=== PATIENT | female | born 1995 ===

== ENCOUNTER 2025-02-04 18:05 | Inpatient (IN) | payer OTHER ==
[~2025-02-04] VITALS: Ht 175.3 cm; Wt 59.0 kg
[2025-02-05] MEDS ORDERED: HydrOXYzine Pamoate 50 MG Cap PO PRN (15:30)
[2025-02-05] MEDS ORDERED: Polyethylene Glycol 3350 17 gm PO PRN (15:35)
[2025-02-05] MEDS ORDERED: OLANZapine ODT 10 MG Tab MM PRN (15:35)
[2025-02-05] MEDS ORDERED: LORazepam 2 MG Tab PO PRN (15:35)
[2025-02-05] MEDS ORDERED: Haloperidol Lactate Inj. 5 MG/ML Injection IM PRN (15:35)
[2025-02-05] MEDS ORDERED: Haloperidol 5 MG Tab PO PRN (15:35)
[2025-02-05] MEDS ORDERED: TraZODone HCl 50 MG Tab PO PRN (15:40)
[2025-02-05] MEDS ORDERED: Ibuprofen 600 MG Tab PO PRN (15:40)
[2025-02-05] MEDS ORDERED: Melatonin 3 MG Tab PO PRN (15:40)
[2025-02-05] MEDS ORDERED: Acetaminophen 325 MG TABLET PO PRN (15:40)
[2025-02-05] MEDS ORDERED: LORazepam 2 MG/ML 1ML Injection IM PRN (15:40)
[2025-02-05] MEDS ORDERED: Aluminum Hydroxide 320MG/5ML 473 ML PO PRN (15:40)
[2025-02-05] MEDS ORDERED: Calcium Carbonate 500 MG Tab Chew PO PRN (15:40)
[2025-02-05] MEDS ORDERED: DiphenhydrAMINE HCl 50 MG Cap PO PRN (15:45)
[2025-02-05] MEDS ORDERED: DiphenhydrAMINE HCl 50 MG/ML 1ML Vial IV PRN (15:45)
[2025-02-05] MEDS ORDERED: FLU VACC TS2024-25(6MOS UP)/PF 45 MCG/0.5 ML SYRINGE IM SCH (15:45)
[2025-02-05] MEDS ORDERED: Ondansetron 4 MG SoluTab MM PRN (16:10)
[2025-02-05 16:41] VITALS: BP 133/117
[2025-02-05] MEDS ORDERED: Cephalexin Monohydrate 500 MG Cap PO SCH (17:00)
--- NOTE | 2025-02-05 17:32 | NUR ---
ADMIT NOTE: PT ADMITED AT 1410. PT A/O X4. 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 PT IS A POOR HISTORIAN OF TIME PERIODS. PT WAS FOUND UNCONSICOUS IN AN HALF-WAY IN [place], OR. FROM WHICH SHE HAD OVER DOSED ON A PIPE WITH FENTANYL. PT REPORTS THAT SHE HAS DEPRESSION AND PTSD. PT STATES IS SI AND AH. VOICES THAT WHISPER THINGS ABOUT HER LIFE AND SHE CAN'T ALLOW OTHERS TO KNOW. HAD A PLAN TO JUMP OFF OF THE " [address] WAY BRIDGE" FROM [place]. PER RN REPORT FROM [place] PT SAYS THAT SHE " CANNOT EAT MEAT BECAUSE SHE ATE A PERSON ALREADY" PT IS CURRENTLY ON KEFLEX 500 MG PO Q 6 HOURS FOR A UTI. 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 PT HAS IN HER POSITION A METAL [facility] DOG TAG AND A METAL SMALL VILE THAT CONTAIN " [place]" (3) PRESENT. GIVEN PERMISSION TO KEEP AT SIDE WITH KNOWING THE RISK OF LOOSNG THEM ON THE UNIT. PT VERY ADIMENT IN KEEPING THEM WITH HER. RESIDENTIAL DIRECTOR NOTIFIED AND WAS GIVEN PERMISSION TO KEEP THEM, BUT NECK CHAIN ON WHICH THEY WERE ON WAS PUT IN CONTAINER AND INVENTORIED. PT STATES SHE WAS IN THE [facility] FROM 2016 UNTIL 2023. THEN STATED THAT SHE GOT OUT OF LONG TERM IN OCTOBER 2024. TIME HISTORY IS NOT IN ORDER OF EVENTS. PT WALKS WITH A LIMP TO THE RIGHT KNEE/LEG FROM A " SPINE BONE TAKEN OUT AND PUT INTO MY KNEE, SO IT IS "PROSTHETIC" PER PT. " THERE IS NO SCARS PRESENT ON HER BACK OR LEGS. PT SHOWERED AFTER ADMISSION AND ATE DINNER. PT IS HOMELESS AT THIS TIME. WILL CONTINUE TO MONITOR FOR WELLNESS AND SAFETY. GIVEN FROM
--- NOTE | 2025-02-05 18:33 | NUR ---
ON ADMISSION IN [facility]ONGINGS, A SMALL GLASS SMOKING DEVICE WITH CONTENT WAS FOUND AND SECURITY CAME TO COLLECT IT PER PROTOCALL.
--- NOTE | 2025-02-05 21:02 | NUR ---
Patients clothes have been washed and dried, placed into patient bags, put in their bin and the bin has been put in storage room.
--- NOTE | 2025-02-06 04:25 | NUR ---
SHIFT SUMMARY, NOC PT WAS IN BED AT THE START OF SHIFT. SHE WOKE FOR EVENING SNACK AND PARTICIPATED. PT THEN APPROACHED DESK AND ASKED FOR HER EVENING MEDICATIONS, WAS BUSY WITH AN OTHER PT. TOLD HER I'D CHECK IN WITH HER SHORTLY ONLY TO FIND SHE HAD NOTHER ORDERED FOR BEDTIME BUT DID HAVE MELATONIN PRN AND SHE REQUESTED THAT. SHE ADMITTED TO THE UNIT YESTERDAY ON DAY SHIFT. SHE ARRIVED WITH A UTI, MEDICATED AROUND MIDNIGHT WITH HER ABX, SHE ROLLED RIGHT OVER AND SLEPT. CONTINUED Q15 MIN CHECKS THROUGH THE SHIFT TO ENSURE PATIENTS SAFETY
[2025-02-06 08:40] VITALS: BP 118/80
[2025-02-06] MEDS ORDERED: Multivitamins 1 Tab PO SCH (09:00)
[2025-02-06] MEDS ORDERED: Nicotine Polacrilex 2 MG Gum PO PRN (11:35)
--- NOTE | 2025-02-06 12:40 | NUR ---
EXPLAINED TO PT THE IMPORTANCE OF SAFETY ON THE UNIT FOR HERSELF AND OTHERS. PT THEN GAVE [facility] TAG AND METAL VIAL WITH ROCKS PRESENT TO STAFF AND THEN WAS PUT INTO SAFE FOR STORAGE OF SAFE KEEPING.
--- NOTE | 2025-02-06 12:44 | NUR ---
PT A/O X3. HAS TO BE REMINDED OF LOCATION OF PLACE, [facility] LOCATION. PT HAS SCATTERED THOUGHTS AND TANGENTIAL. UNABLE TO KEEP ENGAGED AND ON 1 SUBJECT. HER MIND WANDERS. BRINGS UP DELUSIONAL THOUGHTS OF PAST AND STATES THAT SHE COULD GET HI IF WAS "PUSHED", ASKED WHAT SHE MEANT. REPLIED, " I HAVE KILLED FOR MY FAMILY AND WOULD DO IT AGAIN." ENCOURAGED IF SHE SHOULD GET THESE FEELINGS TO LET STAFF KNOW SO SHE CAN BE GIVEN SOME SUPPORT AND HELP. PT STATES THAT SHE IS SI TODAY. PLAN WOULD BE TO JUMP OFF A BRIDGE. PT DOES NOT LIMP IN GAIT TODAY. PARTICIPATES IN GROUP WITH OTHERS AND INTERACTS APPROPRIATELY. PT THIS MORNING HAD A DIFFERENT INTERVIEW OF INTERACTION. SEEMS TO BE ON/OFF IN ANGER VS DELUSIONAL. WILL CONTINUE TO MONITOR FOR SAFETY AND WELLNESS.
[2025-02-06 20:11] VITALS: BP 115/65
[2025-02-06] MEDS ORDERED: OLANZapine ODT 5 MG Tab MM SCH (21:00)
--- NOTE | 2025-02-07 04:32 | NUR ---
SHIFT SUMMARY, NOC AT START OF SHIFT PT WAS IN HER ROOM, SHE GOT UP FOR SNACK TIME AT 1999, SHE WAS TALKING UNDER HER BREATH, WHEN ASKED, SHE ENDORSED AUDIO HALLUCINATIONS AND CONTINUED TO RAMBLE NOT MAKING SENSE. SHE GESTURED TO HER R SIDE AT THE PANT WAIST LINE, PULLED UP THE SIDE OF SHIRT. RASHY AREA NOTICED. IN THE PRIVACY OF HER ROOM, SHE PULLED UP THE BACK OF SHIRT TO REVEAL THAT ALL OF HER BACK FROM THE BRA LINE DOWN WAS COVERED IN SOLID RED RASH, ENDORSING URTICARIA WITH IT. SHE STATED THE RASH WENT TO BILAT BUTTOCKS AND POSTERIOR UPPER THIGHS. INFORMED HER WE WOULD NOTIFY THE PROVIDER. SHE WENT TO BED AND HAS NOT BEEN OUT OF BED SINCE THAT TIME. IN RESPONSE DR FORD HAD US PUT IN A HOSPITALIST CONSULT WHICH WAS COMPLETED.
[2025-02-07] MEDS ORDERED: DiphenhydrAMINE HCl 50 MG Cap PO PRN (07:40)
[2025-02-07 08:18] VITALS: BP 133/103
[2025-02-07 08:20] VITALS: BP 103/65
[2025-02-07] MEDS ORDERED: DiphenhydrAMINE HCL 25 MG Cap PO PRN (15:55)
[2025-02-07] MEDS ORDERED: Loratadine 10 MG Tab PO SCH (15:58)
[2025-02-07] MEDS ORDERED: Loratadine 5 MG/5 ML 5MLUDC PO SCH (16:00)
[2025-02-07 16:58] LABS: Source, Urine Clean Catch
--- NOTE | 2025-02-07 17:08 | NUR ---
SHIFT SUMMARY PT AxOx4. PLEASANT AND COOPERATIVE WITH CARE. PT DENIED SI/HI AND AVTH THIS AM, BUT DID ENDORSE HEARING VOICES LATER IN THE AFTERNOON. PT'S BEHAVIOR HAS BEEN CALM AND RELAXED TODAY. SHE HAD A HOSPITALIST CONSULT TODAY FOR A RED, ITCHY RASH ON HER BACK. PT'S MEDICATIONS WERE ADJUSTED INCLUDING DC'ING ORAL ANTIBIOTICS. PATIENT REPORTED SYMPTOM RELIEF AFTER MEDICATION ADMINISTRATION. PT UA WAS ALSO COLLECTED AND SENT TO LAB. PT HAS BEEN FOLLOWING TREATMENT PLAN INCLUDING TAKING MEDICATIONS PRESCRIBED, ATTENDING MILIEU GROUPS AND MINGLING APPROPRIATELY WITH STAFF/PEERS ON THE UNIT. PT IS CURRENTLY EATING DINNER IN DINING ROOM WITH PEERS. DENIES ANY NEEDS AT THIS TIME.
[2025-02-07 17:14] LABS: Appearance, Urine Hazy (Clear); Bilirubin, Urine Neg (Neg); Blood, Urine Neg (Neg); Color, Urine Yellow (P-Yellow); Glucose Qualitative, Urine Neg (Neg); Ketones, Urine Neg (Neg); Leukocyte Esterase, Urine Neg (Neg); Nitrite, Urine Neg (Neg); Protein, Urine Neg (Neg); Urobilinogen, Urine NORM (Normal)
[2025-02-07 17:31] LABS: Amorphous Light (0-Heavy); Bacteria Mod /hpf; Red Blood Cells, Urine Not Seen /hpf (0-2); Squamous Epithelial Cells Rare /hpf (Few); White Blood Cells, Urine 0-2 /hpf (0-5)
[2025-02-07] MEDS ORDERED: Triamcinolone Acet 0.5% Cream 15 gm TOP SCH (20:00)
[2025-02-07 20:37] VITALS: BP 104/75
[2025-02-07 20:38] VITALS: BP 122/90
[2025-02-07] MEDS ORDERED: Cephalexin Monohydrate 500 MG Cap PO SCH (21:00)
--- NOTE | 2025-02-08 04:33 | NUR ---
SHIFT SUMMARY: PATIENT WAS IN HER ROOM AT THE BEGINNING OF THE SHIFT, LYING ON HER BED AWAKE. SHE GOT UP FOR SNACK TIME AT 1999. SHE WAS PLEASANT AND COOPERATIVE WITH CARES. SHE STATED THAT SHE WASN'T SURE HOW HER DAY WAS, BUT "IT WAS BETTER THAN YESTERDAY". SHE WAS COMPLIANT WITH EVENING MEDICATIONS AND ASKED PERTINENT QUESTIONS. SHE WENT TO BED AFTER SNACK TIME, AND WAS NOTED TO BE RESTING QUIETLY WITH EYES CLOSED AND RESPIRATIONS CONFIRMED. SHE DENIED THOUGHTS OF SI/HI OR SELF HARM THIS SHIFT. CONTINUING TO MONITOR FOR SAFETY WITH Q15 MINUTE CHECKS.
[2025-02-08 08:02] VITALS: BP 117/74
[2025-02-08] MEDS ORDERED: Loratadine 10 MG Tab PO SCH (09:00)
--- NOTE | 2025-02-08 18:13 | NUR ---
SHIFT NOTE PT COOPERATIVE AND CALM THIS SHIFT. SHE WAS ALERT AND ORIENTED X3 AND ANSWERED ALL QUESTIONS. SHE STATE SHE LAST WAS AT [facility] AND HER LAST PHARMACY USED WAS [facility] IN [place]. PT STATE SHE HEARS VOICES THAT ARE TELLING HER TO HARM HERSELF BUT SHE IS ABLE TO NOT LISTEN TO THEM AND DOES NOT WANT TO SELF HARM. THEY ARE ALSO DESCRIBING HER PAST INCIDENTS TO HER. PT DENIES ANY VTH OR SI. SHE DOES HAVE A RASH FROM MID BACK DOWN TO BILATERAL THIGHS THAT IS ITCHY, RED, AND SWOOLEN. SHE SEEN BY HOSPITALIST ABOUT THIS ALREADY. SHE HAS BEEN TO GROUPS AND HAS BEEN COOPERATIVE WITH MEDICATIONS THIS SHIFT.
[2025-02-08 20:49] VITALS: BP 123/79
[2025-02-08] MEDS ORDERED: OLANZapine ODT 10 MG Tab MM SCH (21:00)
--- NOTE | 2025-02-09 04:06 | NUR ---
SHIFT SUMMARY: PATIENT WAS IN THE MILIEU WITH PEERS AND STAFF AT THE BEGINNING OF THE SHIFT. SHE IS SOFT-SPOKEN BUT GETS ALONG WELL WITH OTHERS. SHE IS KIND AND PLEASANT TO HER PEERS. SHE PARTICIPATED IN SNACK AND FOLLOW UP GROUP AT 1999. SHE WAS COMPLIANT WITH EVENING MEDICATIONS. SHE WAS UP X1 DURING COMMUNICATIONS STATION MANAGER FOR A VISTARIL DUE TO CONTINUED INSOMNIA, WHICH WAS EFFECTIVE. SHE REMAINED UP FOR A SHORT TIME AFTER SNACK, AND THEN WENT TO HER ROOM WHERE SHE WAS NOTED TO BE IN BED RESTING WITH EYES CLOSED AND RESPIRATIONS CONFIRMED. SHE DENIED THOUGHTS OF SI OR SELF HARM THIS SHIFT. CONTINUING TO MONITOR FOR SAFETY WITH Q15 MINUTE CHECKS.
[2025-02-09] MEDS ORDERED: Nicotine 21 MG PATCH TOP SCH (09:00)
[2025-02-09] MEDS ORDERED: HydrOXYzine Pamoate 50 MG Cap PO PRN (10:05)
--- NOTE | 2025-02-09 18:18 | NUR ---
SHIFT NOTE PT DENIES ANY SI/HI/VTH, SHE SAYS SHE HEARS VOICES THAT ARE TELLING HER TO HURT HERSELF BY "SHOOTING UP" BUT SHE IS NOT GOING TO LISTEN TO THEM. SHE HAS PARTICIPATED IN GROUPS AND MEALS. SHE C/O INCREASING ANXIETY AND WAS MEDICATED WITH VISTARIL. LATER IN THE DAY SHE C/O CONTINUED ANXIETY AT 8/10 AND WAS THEN MEDICATED WITH ZYPREXA. SHE HAS BEEN COMPLIAT WITH ALL MEDICATIONS AND CALM THIS SHE. SHE HAS DENIED ANY ITCHING ON THIS SHIFT AND THE RASH SEEN YESTERDAY APPEARS TO BE RESOLVING.
[2025-02-09] MEDS ORDERED: Loratadine 10 MG Tab PO PRN (19:13)
--- NOTE | 2025-02-10 00:07 | NUR ---
MASS SCORE: PATIENT GIVEN ZYPREXA FOR ANXIETY AND AGITATION SECONDARY TO "NIGHT TERRORS". PATIENT WOULD BE INTERESTED IN TRYING PRAZOCIN.
--- NOTE | 2025-02-10 04:23 | NUR ---
SHIFT SUMMARY: PATIENT WAS UP IN THE MILIEU AT THE BEGINNING OF THE SHIFT, INTERACTING WITH PEERS AND STAFF. SHE PARTICIPATED IN SNACK AND FOLLOW UP GROUP AT 1999. SHE STATED THAT SHE FEELS "MORE ARTISTIC" AND IS HAPPY ABOUT THAT. SHE WAS PLEASANT AND COOPERATIVE WITH CARES. SHE SHOWED KINDNESS TO A PEER WHO WAS NEW TO THE UNIT. SHE WAS COMPLIANT WITH EVENING MEDICATION ADMINISTRATION. SHE WENT TO BED AFTER SNACK TIME AND WAS NOTED TO BE RESTING QUIETLY WITH EYES CLOSED AND RESPIRATIONS CONFIRMED FOR THE REMAINDER OF THE SHIFT. SHE DENIED THOUGHTS OF SI OR SELF HARMING THIS SHIFT. CONTINUING TO MONITOR FOR SAFETY WITH Q15 MINUTE CHECKS.
[2025-02-10 08:12] VITALS: BP 114/76
[2025-02-10] MEDS ORDERED: HydrOXYzine Pamoate 50 MG Cap PO SCH (14:00)
[2025-02-10] MEDS ORDERED: OLANZapine ODT 5 MG Tab PO ONE (17:35)
--- NOTE | 2025-02-10 17:54 | NUR ---
SHIFT SUMMARY: PT ALERT, ORIENTED AND COOPERATIVE WITH CARE. HAS BEEN PRESENT ON THE UNIT AND ATTENDED GROUPS. PT C/O INCREASED ANXIETY IN THE EVENING. CALL PLACED TO PROVIDER AND NEW ORDER OBTAINED FOR ON TIME DOSE OF ZYPREXA 5 MG. PT MEDICATED PER ORDERS. HAS BEEN PRESENT FOR MEALS. SPENT TIME IN THE DAY ROOM WATCHING TV AND TALKING WITH BOARD ATTENDANT VAZQUEZ.
[2025-02-10 19:59] VITALS: BP 110/73
--- NOTE | 2025-02-11 05:07 | NUR ---
SHIFT SUMMARY: RN RECEIVED PATIENT FOR CARE AT 0030. PATIENT WAS UP X1 STATING THAT SHE NEEDED HELP SLEEPING. SHE WAS GIVEN ZYPREXA WITH GOOD EFFECT. SHE WORKED WITH RN TO DEFINE WAYS OF COPING THAT MIGHT HELP WITH INSOMNIA, SUCH UTILIZING HER COPING SKILLS OF ART, WHICH SHE STATES IS MOST HELPFUL FOR HER. SHE DENIED FEELINGS OF SI OR SELF HARMING. SHE SPENT MOST OF THE SHIFT IN BED RESTING WITH EYES CLOSED AND RESPIRATIONS CONFIRMED. CONTINUING TO MONITOR FOR SAFETY WITH Q15 MINUTE CHECKS.
[2025-02-11 08:15] VITALS: BP 117/81
[2025-02-11] MEDS ORDERED: HydrOXYzine Pamoate 50 MG Cap PO SCH (14:00)
[2025-02-11] MEDS ORDERED: OLANZapine 5 MG Tab PO SCH ×2 (14:00)
--- NOTE | 2025-02-11 17:44 | NUR ---
PT ALERT, ORIENTED AND COOPERATIVE WITH CARE. COMPLIANT WITH MEDICATIONS. PT ENGAGED IN MILIEU AND SPENT TIME IN THE DAY ROOM. PT VERBALIZED FRUSTRATION R/T NOT BEING ABLE TO PICK A MUSICAL TO WATCH IN THE DAY ROOM. WAS FOUND BY MHA SITTING IN THE FLOOR UPSET. PT WAS AGREEABLE TO COLORING IN THE SENSORY ROOM.
[2025-02-11 20:18] VITALS: BP 118/75
[2025-02-11] MEDS ORDERED: OLANZapine ODT 10 MG Tab MM SCH (21:00)
--- NOTE | 2025-02-12 04:14 | NUR ---
SHIFT SUMMARY: PATIENT WAS IN THE DAY ROOM AT THE BEGINNING OF THE SHIFT, WATCHING TELEVISION WITH STAFF AND PEERS. SHE WAS PLEASANT AND COOPERATIVE. SHE PARTICIPATED IN SNACK AND EVENING GROUP IN THE DINING AREA AT 1999. SHE WAS COMPLIANT WITH EVENING MEDICATION ADMINISTRATION. SHE DENIED SUICIDAL IDEATION OR THOUGHTS OF SELF HARMING THIS SHIFT. SHE GOT UP X1 DURING DOCTOR'S ASSISTANT, REQUESTING SOMETHING FOR SLEEP AND SOMETHING FOR ITCHING. SHE RECEIVED CLARITIN BUT HAD NOTHING FOR ANXIETY/SLEEP. SHE WAS ABLE TO GO BACK TO BED AND REST. SHE WAS MOSTLY RESTING QUIETLY WITH EYES CLOSED AND RESPIRATIONS CONFIRMED THROUGHOUT THE REMAINDER OF THE SHIFT. CONTINUING TO MONITOR FOR SAFETY WITH Q15 MINUTE CHECKS.
[2025-02-12 08:30] VITALS: BP 121/69
[2025-02-12] MEDS ORDERED: Loratadine 10 MG Tab PO SCH (13:00)
--- NOTE | 2025-02-12 16:46 | NUR ---
SHIFT SUMMARY: PT ALERT AND COOPERATIVE WITH CARE. DENIES SI, HI OR THOUGHTS OF SELF HARM. STATES THAT SHE IS STILL HEARING VOICES BUT IT IS "CHATTER" NOT DIRECT CONVERSATION. PT COMPLIANT WITH MEDICATIONS AND CARE. SPENT TIME RESTING IN ROOM, COLORING AND WATCHING TV IN THE DAY ROOM.
[2025-02-12] MEDS ORDERED: LORazepam 1 MG Tab PO PRN (20:10)
[2025-02-12 20:13] VITALS: BP 126/81
--- NOTE | 2025-02-13 04:12 | NUR ---
SHIFT SUMMARY: PATIENT WAS IN THE DAY ROOM AT THE BEGINNING OF THE SHIFT, WATCHING TELEVISION WITH STAFF AND PEERS. SHE PARTICIPATED IN SNACK AND FOLLOW UP GROUP IN THE DINING AREA AT 1999. SHE WAS PLEASANT AND COOPERATIVE WITH CARES. SHE WAS ABLE TO MAKE NEEDS KNOWN. SHE HAD NO STATED NEEDS OR CONCERNS THIS SHIFT. SHE WAS COMPLIANT WITH EVENING MEDICATION ADMINISTRATION. SHE DENIED THOUGHTS OF SUICIDAL IDEATION OR SELF HARMING THIS SHIFT. SHE WENT TO BED SHORTLY AFTER SNACK TIME AND WAS NOTED TO BE RESTING QUIETLY WITH EYES CLOSED AND RESPIRATIONS CONFIRMED FOR THE REMAINDER OF THE SHIFT. CONTINUING TO MONITOR FOR SAFETY WITH Q15 MINUTE CHECKS.
[2025-02-13 08:06] VITALS: BP 115/81
--- NOTE | 2025-02-13 17:23 | NUR ---
SHIFT SUMMARY PT A/O X3; PLEASANT AND COOPERATIVE WITH CARE. SHE DENIES SI AND HI BUT ENDORSES AUDITORY HALLUCINATIONS. SHE REPORTS HEARING VOICES DURING THE DAY AND HAS "NIGHT TERRORS" DURING THE NIGHT. SHE APPEARED DROWSY THIS MORNING AND UNINTENTIALLY MISSED THE FIRST GROUP OF THE DAY. PT DID REPORT THAT SHE FEELS THAT SHE IS DOING BETTER COMPARED TO "72 HOURS AGO". SHE ATTENDED THE OTHER GROUPS AND MEALS THIS SHIFT.
[2025-02-13 19:55] VITALS: BP 126/92
[2025-02-13] MEDS ORDERED: OLANZapine ODT 10 MG Tab MM SCH (21:00)
--- NOTE | 2025-02-14 04:14 | NUR ---
SHIFT SUMMARY PT IN GROUP ROOM AT START OF SHIFT. PT DENIES ANY SI, HI, THOUGHTS OF SELF HARM. SHE REPORTS SHE HAS AUDITORY HALLUCIANTIONS, BUT THEY ARE QUIETER. SHE NOTED HER MOOD "IT'S LIKE I'M ON A SLOW ROLLER COASTER." PT WENT ON TO EXPLAIN THAT SHE FEELS LIKE SHE ISOLATES HERSELF, BUT SHE IS TRYING TO BE BETTER. STATES SHE FEELS LIKE SHE DOESN'T FIT IN ANYWHERE. PT HAD EVENING SNACK, WAS COMPLIANT WITH MEDS. RECEIVED PRN TRAZODONE AND MELATONIN. PT HAD A VERBAL ALTERCATION WITH ANOTHER PATIENT AND THEN REPORTED SHE FELT DIZZY. VITAL SIGNS WNL, EXCEPT FOR HR OF 110 BPM. PT STATED SHE WANTED TO GO TO BED. ASSISTED PT TO HER ROOM AT APPROXIMATELY 2030 AND PT HAS APPEARED TO SLEEP THROUGHOUT THE NIGHT, WITH RESPIRATIONS CONFIRMED. Q15 MINUTE CHECKS TO CONTINUE PER UNIT PROTOCOL AND PER SAFETY.
--- NOTE | 2025-02-14 06:09 | NUR ---
ANXIETY PT PRESENTED TO NURSES STATION AT APPROXIMATELY 0600, STATED SHE WAS ANXIOUS FROM A BAD DREAM. REQUESTED SOMETHING FOR ANXIETY, AND RECEIVED PRN DOSE OF ATIVAN. Q15 MINUTE CHECKS TO CONTINUE.
[2025-02-14 07:23] LABS: CHOL/HDL RATIO 2.3; Cholesterol 122 mg/dL (50-200); HDL Cholesterol 52 mg/dL (>39); Low Density Lipoprotein Chol 50 mg/dL (0-110); Triglycerides 98 mg/dL (30-140); Very Low Density Lipoprot Chol 19 mg/dL (6-28)
[2025-02-14 07:49] VITALS: BP 113/73
--- NOTE | 2025-02-14 17:20 | NUR ---
SHIFT SUMMARY PT PARTICIPATED IN [facility], TOOK MEDICATIONS. CONTINUES TO DENY SI/HI, BUT C/O AUDITORY HALLUCINATIONS (NONTHREATENING) AND SEEING A SHADOW PERSON. PT ALSO CONTINUES TO EXPRESS CONCERN OVER NIGHT TERRORS/NIGHTMARES. CONTINUES TO HAVE TANGENTIAL SPEECH. MONITORING Q15M.
[2025-02-14] MEDS ORDERED: Triamcinolone acet. 0.5% Ointment 15 gm TOP PRN (21:10)
[2025-02-14 21:14] VITALS: BP 123/77
--- NOTE | 2025-02-15 03:55 | NUR ---
SHIFT SUMMARY PATIENT VERBALIZED THAT SHE WAS FEELING IF SHE WAS NEEDING EXTRA MEDICATIONS TONIGHT DUE TO HAVING INCREASED VISUAL HALLUCINATIONS OF FLASHING LIGHTS, AUDITORY HALLUCINATIONS CONTINUE PATIENT DESCRIBED VOICES FROM PEOPLE SHE HAS KNOWN IN THE PAST DESCRIBED NONTHREATENING. AT APROX 2100 PATIENT WANTING TO TALK, VERBALIZED THAT SHE IS FEELING "REACTIVE" DESCRIBING FIGHT OR FLIGHT FEELING. 2ND TRAZODONE GIVEN PER EMAR. WAS ABLE TO SIT IN SENSORY ROOM FOR APROX 40 MIN CONVERSATION WAS RAMBLING AND DIFFICULT TO FOLLOW, MOSTLY FOCUSING ON HER PAST AND RELATIONSHIP WITH HER FATHER. AFTER ALLOWING PATIENT TIME TO TALK SHE VERBALIZED THAT SHE FELT BETTER AND SHE WENT TO BED. APPEARS TO BE SLEEPING WELL T/O NIGHT WITH RESP EVEN AND UNLABORED. CONTINUE TO MONITOR Q15MIN
--- NOTE | 2025-02-15 04:30 | NUR ---
PATIENT AWAKE ASKING FOR SOMETHING TO HELP WITH ANXIETY. ATIVAN PO GIVEN.
[2025-02-15 08:15] VITALS: BP 114/66
[2025-02-15] MEDS ORDERED: BusPIRone HCl 5 MG Tab PO SCH (14:00)
--- NOTE | 2025-02-15 17:05 | NUR ---
SHIFT NOTE PT UP FOR MEALS AND SNACKS. SHE HAS DENIED SI/HI/VH BUT SHE C/O AUDITORY HAULLUCINATIONS OF VOICES RANDOMLY SPEAKING ABOUT NOTHING SPECIFIC, SHE STATE THEY ARE NOT THREATENING OR TELLING HER TO HURT HERSELF IN THE PAST BUT JUST CAN BE DISTRACTING. SHE HAD AN ELEVATION OF ANXIETY IN THE AFTERNOON. SHE HAD BUSPAR ADDED TID TO MEDICATION REGIMEN. AT 1710 PT C/O "PTSD PSYCHOSIS" AND REQUESTING TO SPEAK TO . CONSULTING WITH PT AT THIS TIME.
[2025-02-15] MEDS ORDERED: LORazepam 1 MG Tab PO ONE (17:15)
[2025-02-15 20:10] VITALS: BP 126/74
--- NOTE | 2025-02-16 04:03 | NUR ---
SHIFT SUMMARY PATIENT UP IN MILIEU, COLORING AND WATCHING TV AT TIMES SINGING WITH MUSIC VIDEO. DENIES SI, OR HI. VERBALIZED THAT AUDITORY HALLUCINATIONS WERE VOICES "IN THE BACKGROUND" CONTINUES TO SEE NONINTRUSIVE SHADOW PEOPLE. DURING MEDICATION PASS PATIENT INTERESTED IN IDENTIFYING EACH MEDICATION BEING GIVEN. REQUIRING 2ND DOSE OF TRAZODONE BEFORE GOING TO SLEEP. PATIENT SLEEPING WELL T/O THE NIGHT RESP EVEN AND UNLABORED. CONTINUE TO MONITOR Q15MIN
--- NOTE | 2025-02-16 06:36 | NUR ---
PATIENT AWAKE, FEELING ANXIOUS. PATIENT APPEARS SLEEPY. PATIENT AGREES TO WAIT FOR AM MEDICATIONS. REQUESTING ENSURE WITH HER BREAKFAST. PASSED ON INFO TO ONCOMING STAFF
[2025-02-16 07:45] VITALS: BP 111/84
--- NOTE | 2025-02-16 17:20 | NUR ---
SHIFT CHANGE: PT A/O X4. COOPERATIVE. PT DENIES SI,HI. STATES TO HAVE SHADOWS PEEKING INTO HER ROOM, BUT DOESN'T FEEL THAT ANY HARM WILL COME TO HER. STATES HEARS VOICES BUT THEY ARE MORE OF A BACK GROUND NOISE, NOTHING CLEAR TO UNDESTAND. PT HAS BEEN FIDIGETY TODAY. HAS BEEN CALM WHEN IN GROUPS. JOURNALING TODAY AND MAKING A LIST OF BOOKS SHE WANTS TO READ SOMEDAY. MEAL COMPLIANT AND TAKES MEDS. GIVEN ATIVAN PRN AT 1704 FOR BEING FIDGETY. PT STATES SHE DOESN'T KNOW WHY SHE IS RESTLESS TODAY. WILL CONTINUE TO MONITOR.
[2025-02-16] MEDS ORDERED: BusPIRone HCl 5 MG Tab PO ONE (20:35)
[2025-02-16] MEDS ORDERED: BusPIRone HCl 10 MG Tab PO SCH (21:00)
[2025-02-17 01:28] VITALS: BP 94/78
--- NOTE | 2025-02-17 04:30 | NUR ---
Jocy Yuan" is alert and oriented times four. She spent the evening up in the milieu watching a movie and coloring. She denied SI,HI and AVH during evening assessment. Upon sitting with her in the TV room during the movie, she was exhibiting signs of internal stimuli and would just look down and say a few random words then return to coloring or the TV. She woke once around 0100 and stated she was feeling anxious and was there anything that I could give her. Ativan 1mg was given at that time and patient has slept through the night so far. Sleep time as yet is approximately 6.5 hours. Will continue close monitoring every 15 minutes for safety and comfort.
[2025-02-17 08:06] VITALS: BP 108/70
--- NOTE | 2025-02-17 09:18 | NUR ---
PT A/O X3. PT IN AN AGITATED, ANXIOUS, IMPULSIVE, DISORGANIZED, ELEVATED FIDETING MOOD. WHEN GIVEN MEDS PT VERBALIZED THAT SHE NEEDED ENSURE WITH HER MEALS. HAD TO HVE PT REPEAT SOME THINGS SHE SPEAKS SO LOW. AFTER DISCOVERING THAT SHE WANTED THE ENSURE, TRIED TO EDUCATE THAT SHE IS EATING MEALS AND SNACKS WELL.PT IS ALSO ON A MULTI VITAMIN. PT'S VOICE BECAME IMPULSIVE AND ELEVATED. "STATING I NEED IT." LET PT KNOW THAT A LAB WOULD BE DRAWN TO SEE HER LEVELS. PT BECAME IRATE AND LOUD REPEATING 'NO LAB DRAWS, CAN'T YOU CHECK THE OLD RECORDS?' PT WOULD NOT ALLOW THIS RN TO SPEAK. LET PT VEALIZE UNTIL SHEFELT BETTER. REASSURED PT THAT THE DR WOULD BE NOTIFIED OF HER REQUEST AT TEAM MEETING. SHE ALSO SAID SHE WOULD TELL THE DR. WILL CONTINUE TO MONITOR.
--- NOTE | 2025-02-17 09:45 | NUR ---
PT IN GROUP. SITTING ON CHAIR AND COLORING ,BUT NOT ENGAGED WITH GROUP ACTIVITY. ANGER LESS AT THIS TIME.WILL CONTINUE TO MONITOR.
[2025-02-17] MEDS ORDERED: Nicotine Polacrilex 2 MG Gum PO PRN (17:15)
--- NOTE | 2025-02-17 17:39 | NUR ---
SHIFT SUMMARY : PT A/O X4.DENIES SI HI AND AVH AT THIS TIME. STATED THAT THE SHADOWS ARE STILL PRESENT AT TIMES. PT SEEMS TO NOT TO BE IN INTERAL STIMULI WHEN DEEPLY ENVOLVED WITH GROUP PROJECTS. HAS BEEN IN A BETTER, CALMER MOOD SINCE AFTER LUNCH. HAS NOT MENTIONED GETTING ENSURE SINCE EPISODE THIS MORNING. ATE 100% OF DINNER AND EXTRA SANDWICH. WILL CONTINUE TO MONITOR.
[2025-02-17 20:34] VITALS: BP 126/80
--- NOTE | 2025-02-18 04:37 | NUR ---
Jocy (Aaron) is A&OX4 with a very blunted affect when out in the milieu. She did stay up and watch a movie while coloring and have a snack before bed. At 1130, she came out of her room and said she felt anxious and wanted to know if there was anything she could take. I told her that she could come back out in 30 minutes (after midnight) if she still needed something and I would give her her once daily prn ativan. At 0415 she woke and requested it and it was given. No SI,HI or AVH at time of evening assessment. Will continue close monitoring every 15 minutes for safety and comfort
[2025-02-18 12:12] VITALS: BP 120/81
--- NOTE | 2025-02-18 15:23 | NUR ---
SHIFT ASSESSMENT: PT DENIED SI, HI AND PAIN, SHE ENDORSED AUDITORY HALLUCINATIONS "THEY ARE JUST CHATTERING. THE VISUAL ONES ARE FOLLOWING ME AROUND." HER ANXIETY LEVEL SHE RATED 7-8/10w. PT REPORTED HER MOOD "TIRED." HER AFFECT IS FLAT. PT HAS SPENT THE DAY COLORING AND WATCHING A MOVIE WITH PERS. SHE DID REQUEST AND RECEIVED NICTINE GUM. SHE HAS BEEN PLEASANT AND COOPERATIVE.
[2025-02-18 20:19] VITALS: BP 125/106
--- NOTE | 2025-02-19 04:14 | NUR ---
SHIFT SUMMARY : PT A/O X4. PLEASANT AND COOPERATIVE. DENIES SI AND HI, BUT ENDORSES HEARING FAINT NOISE IN THE BACK GROUND AND SHADOWS COMING AT HER. PTIN THE GROUP ROOM AT THE BEGINING OF SHIFT. INTERACTING WITH PEERS IN THE MILIEU. PT WENT TO HAVE A SNACK AND PARTICIPATED IN THE WRAP UP GROUP. PT IS NEEDY AND WANTS SEVERAL THINGS AND BECOMES IRRITATED WHEN NOT GETTING HER WAY. SHE RAISES HER VOICE AND ANGER TONE BECOMES PRESENT. PT CAME TO NURSES STATION WITH A BOOK AND ON THE FIRST PAGE WAS THE INITIALS K.T. WITH THE DATE 08/11/18. PT STATED THAT HER MOTHER WROTE THESE IN THE BOOK. SHE BECAME RAMPED UP AND WOULD NOT CALM DOWN WITH SIMPLE DIRECTIONS. AFTER LETTING HER BELEIVE WHAT SHE HAD CLAIMED SHE BECAME REDIRECTABLE. WENT TO BED AND SLEPT UNTIL 0340 AND CLAIMED THAT HER NIGHTMARES WERE NOT LETTING HER SLEEP. GIVEN ATIVAN 1 MG PRN DOSE. LET PT KNOW SHE DIDN'T HAVE PRN FOR THE DAY SHE TOOK IT THIS EARLY AM. PT WENT BACK TO BED AND SLEPT. WILL CONTINUE TO MONITOR FOR SAFETY AND WELLNESS.
[2025-02-19 08:16] VITALS: BP 112/73
--- NOTE | 2025-02-19 11:34 | NUR ---
IMPORTANT DISCHARGE INFORMATION PATIENT TO BE DISCHARGED ON FEBRUARY 20 BETWEEN 10-11AM. SHE WILL BE GOING TO [facility]. SHE NEEDS TO ARRIVE BEFORE 3PM TO CHECK IN. LOCATION: [address] [place] [address] TRANSPORTATION: [facility] RIDE: [phone] SHE HAS A FOLLOW UP APPOINTMENT WITH [facility] ON Thursday02/21/25 AT 1PM. THEY WILL ASSIST IN FINDING PCP AND OTHER RESOURCES. SHE REQUESTS [facility]: [phone] LIBIA SOLIMAN IS HER MENTAL HEALTH ELECTRONIC INSTRUMENT TRADES WORKER: [phone]
--- NOTE | 2025-02-19 16:23 | NUR ---
SHIFT SUMMARY PT A/O X3; PLEASANT AND COOPERATIVE WITH CARE. SHE DENIES SI/HI BUT REPORTS HEARING VOICES AND SEEING A "SHADOW MAN". PT REPORTED SEEING SOMETHING THAT REMINDED HER OF HER MOTHER IN A BOOK AND IT UPSET HER. SHE BELIEVES THESE FEELINGS ARE MAKING HER HALLUCINATIONS WORSE. HER AFFECT IS FLAT AND SPEECH IS LOW VOLUME. PT ALSO REPORTED THAT SHE DOES HAVE EPISODES OF INCONTINENCE AND THAT IS WHY SHE PREFERS TO WEAR PULLUPS. SHE SAYS THAT THIS HAS BEEN AN ONGOING ISSUE FOR HER FOR QUITE SOME TIME. THE PT IS TO DC BACK TO THE [facility] TOMORROW. SHE IS MONITORED VIA Q15 ROUNDING FOR SAFETY AND WELLNESS.
[2025-02-19] MEDS ORDERED: BUSP10 PO (17:14)
[2025-02-19] MEDS ORDERED: LORA10ER PO (17:15)
[2025-02-19] MEDS ORDERED: OLAN20 MM (17:16)
[2025-02-19 20:08] VITALS: BP 114/78
--- NOTE | 2025-02-20 04:16 | NUR ---
SHIFT SUMMARY: PT A/O X4. UP IN THE GROUP ROOM AT THE BEGINNING OF THE SHIFT COLORING. SHE LOVES TO COLOR. PT AND ROOMMATE GET ALONG GREAT AND TALK IN THEIR ROOM AND CAN THEM LAUGHING. DENIES SI HI. EDORSES THAT A SHADOW DOES FOLLOW HER AT TIMES. SHE STATES THAT THE NOISES ARE ONGOING BUT UNABLE TO UNDERSTAND THEM, "IT'S MORE OF A HUMMING NOISE" PER PT. PARTICAPATED IN WRAP UP GROUP AND HAD SNACK. SHE THEN WENT BACK TO HER ROOM AND FEEL ASLEEP. HAD A GOOD NIGHT. WILL CONTINUE TO MONITOR FOR WELLNESS AND SAFETY.
[2025-02-20 08:02] VITALS: BP 120/79
--- NOTE | 2025-02-20 10:40 | NUR ---
SHIFT SUMMARY/DISCHARGE NOTE PT AxOx4. PLEASANT AND COOPERATIVE WITH CARE. PT IS DISCHARGING TO LONG-TERM IN [place] TODAY. PT DENIES SI/HI AND AVTH THIS AM. SHE HAS BEEN FOLLOWING HER TREATMENT PLAN INCLUDING TAKING MEDS PRESCRIBED, ATTENDING ALL [place] THERAPY GROUPS AND MINGLING APPROPRIATELY WITH STAFF/PEERS. PT'S DISCHARGE INSTRUCTIONS DISCUSSED INCLUDING FOLLOW UP INFORMATION, DISCHARGE MEDS AND PT EDUCATION ON NEW DIAGNOSES AND MEDICATIONS. PT VERBALIZED UNDERSTANDING. PT'S BELONGINGS RETURNED AND SAFELY ESCORTED OUT TO SECURE TRANSPORT AT APPROX 1030.
== END 2025-02-20 10:36 | disposition home or self-care (01) | DRG 885 ==
LOC: BHU 18:05
PROVIDERS: Internal Medicine; Student in an Organized Health Care Education/Training Program; ADMIT Psychiatry & Neurology Psychiatry
DX: F25.0 Schizoaffective disorder, bipolar type (principal); F15.20 Other stimulant dependence, uncomplicated; N39.0 Urinary tract infection, site not specified; Z59.00 Homelessness unspecified; E10.9 Type 1 diabetes mellitus without complications; F43.10 Post-traumatic stress disorder, unspecified; F17.200 Nicotine dependence, unspecified, uncomplicated; R21 Rash and other nonspecific skin eruption; F19.10 Other psychoactive substance abuse, uncomplicated; Z79.899 Other long term (current) drug therapy; Z79.4 Long term (current) use of insulin; Z91.010 Allergy to peanuts; Z91.018 Allergy to other foods; Z79.1 Long term (current) use of non-steroidal anti-inflammatories (NSAID)
CPT/HCPCS: 36415; 80061; 81001; 83036; 87086; A9270

== ENCOUNTER 2025-06-25 16:38 | Inpatient (IN) | payer OTHER ==
[~2025-06-25] VITALS: Ht 172.7 cm; Wt 53.4 kg
[~2025-06-25 16:38] MED LIST: BUSP10 PO; LORA10ER PO; OLAN20 MM
[2025-06-25 18:44] VITALS: BP 109/98
[2025-06-25] MEDS ORDERED: Polyethylene Glycol 3350 17 gm PO PRN (18:50)
[2025-06-25] MEDS ORDERED: Ondansetron 4 MG SoluTab MM PRN (18:50)
[2025-06-25] MEDS ORDERED: Aluminum Hydroxide 320MG/5ML 473 ML PO PRN (18:55)
[2025-06-25 19:04] VITALS: BP 109/98
--- NOTE | 2025-06-25 22:17 | NUR ---
ADMIT: TOA [address] [facility] VIA SECURE TRANSPORT FOR [facility] IN [place]. PATIENT COOPERATIVE WITH CHANGING INTO PATIENT SCRUBS AND 2 NURSE SKIN CHECK DONE. PATIENT PACING AND EATING SNACK DURING INTAKE QUESTIONS. CONVERSATION DIFFICULT TO FOLLOW DUE TO FLIGHT OF IDEAS. PATIENT CONTINUES TO HAVE SI THOUGHTS, WITH PLAN TO GET A GUN OR KNIFE, THE VERBALIZING "SLEEPING PILLS WILL WORK TOO". PATIENT HAS MULTIPLE SMALL SCABS TO ARMS DUE TO "PICKING AT SKIN" PATIENT AGREES TO NOT HARM SELF WHILE HERE, AND WILL COME TO STAFF IF HAVING SELF HARM FEELINGS. PATIENT ALSO ENDORSES HI FEELING TOWARD THE [facility]. "THEY NEED TO PAY FOR WHAT THEY HAVE DONE" PATIENT DENIES PLAN AND VERBALIZED NO SPECIFIC PEOPLE OR PERSON. PATIENT HAS AUDITORY HALLUCINATIONS VERBALIZING THAT "THEY ARE SO BAD, I CAN'T UNDERSTAND WHAT THEY ARE SAYING" ALSO HAVING VISUAL HALLUCINATIONS "I SEE THE " CAUSING FEAR AT TIMES. PATIENT VERBALIZED THAT SHE IS NOT TAKING ANY MEDICATIONS AT THIS TIME AND THAT SHE IS USING METH TO TREAT HER DIABETES. PATIENT GIVEN TOUR OF UNIT, AND SET UP FOR SHOWER. AFTER HER SHOWER TAKING ZYPREXA WHICH HELPED WITH HER ANXIETY. IBUPROFEN GIVEN FOR ALVAREZ AND TRAZODONE, MELATONIN GIVEN FOR SLEEP. PATIENT APPEARS REMEMBER ONE OF THE PEERS ON THE UNIT VERBALIZING THAT THEY ARE SISTERS. AFTER SNACK PATIENT RETURNING TO ROOM AND APPEARS TO BE SLEEPING AT THIS TIME.
--- NOTE | 2025-06-26 04:07 | NUR ---
SHIFT SUMMARY PATIENT APPEARS TO BE SLEEPING WELL T/O NIGHT, RESP EVEN AND UNLABORED. CONTINUE TO MONITOR Q15MIN
[2025-06-26 06:45] LABS: CHOL/HDL RATIO 2.6; Cholesterol 126 mg/dL (50-200); HDL Cholesterol 48 mg/dL (>39); LDL/HDL RATIO 1.5; Low Density Lipoprotein Chol 71 mg/dL (0-110); Triglycerides 34 mg/dL (30-140); Very Low Density Lipoprot Chol 6 mg/dL (6-28)
[2025-06-26 08:59] VITALS: BP 131/81
[2025-06-26] MEDS ORDERED: Multivitamins 1 Tab PO SCH (09:00)
--- NOTE | 2025-06-26 13:51 | NUR ---
SHIFT ASSESSMENT: PT WAS RESTING IN BED AT THE TIME OF THE ASSESSMENT. SHE ENDORSED SI WITH A PLAN OF "SHOTGUN OR KNIFE." WHEN ASKED ABOUT HI SHE REPLIED, "I WOULDN'T CALL IT THAT." SHE WROTE ON HER COMMUNITY GROUP NOTE "MURDEROUS" A FEELING. WHEN ASKED ABOUT AVH SHE REPLIED, "SOMETHING IN THE WILDERNESS." SHE ENDORSED ANXIETY 4-5/10w AND PAIN TO HER RIGHT ARM 3-5/10w. WHEN ASKED BOUT HER MOOD SHE REPLIED, "I DON'T KNOW." PT HAS STAYED IN BED AND GOTTEN UP FOR MEALS ONLY.
[2025-06-26 19:07] VITALS: BP 116/66
--- NOTE | 2025-06-27 04:12 | NUR ---
Patient is alert and oriented times four. She has been somnolent most of the shift. She did get up for snack time, and for evening medications. She did admit to Suicidal Ideation as well as homicidal ideation towards no one in particular (in [place]). She did get up at 0245 with complaints of a headache and increasing anxiety. Ibuprophen and vistaril were given with good result. will continue monitoring every 15 minutes for comfort and safety
[2025-06-27 09:13] VITALS: BP 109/72
--- NOTE | 2025-06-27 17:14 | NUR ---
SHIFT SUMMARY PT AxOx4. PLEASANT AND COOPERATIVE WITH CARE FOR MOST OF THIS SHIFT. PT SPENT INTERMITTENT PERIODS NAPPING T/O THE DAY. SHE REPORTED FEELING "ANXIOUS" AND THAT SHE WAS "HEARING VOICES" TODAY. SHE WAS MEDICATED FOR THESE SYMPTOMS WITH REPORTED RELIEF. SOME STAFF NOTED THAT THE PATIENT WAS SHORT TEMPERED THIS SHIFT. HOWEVER, SHE WAS NOT DISRUPTIVE TO THE MILIEU AND APPEARED TO COPE WITH HER MOODS. THE PATIENT HAS OTHERWISE BEEN PARTICIPATING IN HER TREATMENT PROGRAM RECOMMENDED, INCLUDING TAKING PRESCRIBED MEDICATIONS, ATTENDING SOME MILIEU THERAPY GROUPS AND RESPECTFULLY MINGLING WITH PEERS. THE PATIENT IN CURRENLTY SLEEPING IN HER BED. SHE APPEARS CALM AND COMFORTABLE. THERE IS NO IMMINENT DC PLANS AT THIS TIME.
[2025-06-27 20:42] VITALS: BP 119/84
--- NOTE | 2025-06-28 04:23 | NUR ---
Patient is alert and oriented times four. She was quiet around her peers at snack time, then went right back to bed. She still endorses SI, but states she has no plan. No HI, or AVTH noted on brief evening assessment. Woke again as she had the night before, complaining of a headache and an inability to get back to sleep. Tylenol, Ibuprophen and Vistaril resolved her pain as well as her sleep problems. Will continue close monitoring every 15 minutes for comfort and safety.
[2025-06-28 09:00] VITALS: BP 124/76
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
[2025-06-28 19:55] VITALS: BP 124/78
[2025-06-29 01:52] VITALS: BP 94/58
--- NOTE | 2025-06-29 01:55 | NUR ---
PATIENT GOT OUT OF BED AND CAME TO THE NURSES STATION AT 0130 ASKING FOR SOMETHING TO SLEEP (SHE HAD HAD 20MG ZYPREXA AND 50MG TRAZODONE). ALSO, STATING SHE WANTED SOME MEDICATION FOR HER MIGRAINE. IBUPROPHEN AND VISTARIL WERE PULLED TO GIVE HER, AND WHEN THIS RN CAME OUT, HER COLOR HAD CHANGED AND SHE WAS CLAMMY AND QUITE PALE. BP HAD DROPPED TO 94/58 AND PATIENT WAS NOW COMPLAINING OF BEING NAUSEATED. OTHER MEDS HELD AND 4MG ZOFRAN GIVEN. WILL CONTINUE TO MONITOR PATIENT CLOSELY AND RECHECK BLOOD PRESSURE AT 0215.
[2025-06-29 02:23] VITALS: BP 105/57
--- NOTE | 2025-06-29 04:23 | NUR ---
Trent is alert and oriented times four. She started out having a pleasant time out in the milieu sitting in the TV room coloring and writing in her journal. After snack, She took her medications and went to bed. She states no SI,HI or AVTH during evening assessment. She was fast asleep shortly after that. At 0130, she came out asking for ibuprophen (migraine) and a vistaril, because she stated she was anxious and would not be able to get back to sleep. five minutes later, prior to giving the patient the meds, she looked pale, felt clammy, and had a systolic in the 90's and was nauseated. Instead f other meds, Zofran given with good result. Other two meds were disposed of. Will continue close observation every 15 minutes for safety and comfort
[2025-06-29 09:09] VITALS: BP 123/80
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
--- NOTE | 2025-06-29 10:35 | NUR ---
PT ENDORSED AUDITORY HALLUCINATIONS, "I STILL HEAR THEM BUT THEY ARE CONFUSED."
--- NOTE | 2025-06-29 11:03 | NUR ---
PT HAS BEEN SCRATCHING AT HER HEAD, SHE DECLINED A HAIR EXAM, "IT'S OK...IT'S JUST MY SCARS THAT ARE ITCHY." PT REQUESTED VISTARIL 50MG FOR ANXIETY.
--- NOTE | 2025-06-29 16:29 | NUR ---
PT ATTENDED GROUPS TODAY AND IS PRESENTLY WATCHING TV WITH PEERS. SHE FEELS SHE HAS ONLY BEEN ON THE UNIT FOR TWO DAYS AND WAS A BIT ARGUMENTATIVE WITH STAFF. OTHER THAN THAT SHE HAS BEEN COOPERATIVE.
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
[2025-06-29 20:19] VITALS: BP 123/73
--- NOTE | 2025-06-30 04:52 | NUR ---
SHIFT NOTE: RESUMMED CARE OF PT AROUND 0030 ON 06/30/25. PLEASE READ OTHER NOTE WRITTEN BY OTHER RN. PT HAS BEEN ASLEEP SINCE TAKING OVER CRE. PLEASE LET MD KNOW TO READ THE NOTE ALSO. PT IS DELUSIONAL AND CANNOT KEEP THOUGHTS STRAIGHT. WILL CONTINUE TO CARE FOR PT AND MONITOR.
[2025-06-30 09:09] VITALS: BP 122/71
[2025-06-30 14:50] VITALS: BP 133/73
--- NOTE | 2025-06-30 14:50 | NUR ---
PT TO NURSES STATION STATING, "MY HEAD FEELS FUZZY". VITAL SIGNS CHECKED AND B/P IS WITHIN NORMAL LIMITS. SHE IS ALERT AND ORIENTED AT THIS TIME. DISCUSSED MEDICATIONS AND SIDE EFFECTS.
--- NOTE | 2025-06-30 16:44 | NUR ---
SHIFT SUMMARY: PT ALERT, ORIENTED AND COOPERATIVE WITH CARE. SHE DENIES SI, HI AND AVH. PT COMPLIANT WITH MEDICATIONS. SHE ATTENDED GROUPS AND MEALS. PT REMAINED CALM THROUGHOUT THE DAY. SHE SPENT TIME IN THE DAY ROOM WATCHING TV AND COLORING.
--- NOTE | 2025-06-30 17:43 | NUR ---
PT TO C/O INCREASED AUDITORY HALLUCINATIONS AND REQUESTED MEDICATON. STATES, "THE VOICES ARE GETTING INTO MY HEAD AND GETTING TO ME". STATES, "THEY ARE JUST MAKING NOISE". PT MEDICATED PER EMAR WITH PRN PER ORDERS.
[2025-06-30 19:31] VITALS: BP 122/77
--- NOTE | 2025-07-01 04:17 | NUR ---
SHIFT SUMMARY PATIENT UP TO NURSES DESK ASKING FOR HYDROXYZINE FOR ANXIETY. PATIENT VERBALIZED THAT THE ZYPREXA THAT WAS GIVEN EARLIER "ONLY HELPED A LITTLE" PATIENT APPEARS RESTLESS, WONDERING THE UNIT SPENDING SHORT TIME IN DAY ROOM, SENSORY ROOM, AND HER ROOM. DENIES SI OR HI. DENIES AVH YET APPEARS TO BE RESPONDING TO INTERNAL STIMULI. CONVERSATION DIFFICULT TO FOLLOW. AFTER SNACK PATIENT COMPLIANT WITH HS MEDICATIONS AND MELATONIN GIVEN TO HELP WITH SLEEP PER PATIENT REQUEST. PATIENT APPEARS TO BE SLEEPING WELL T/O NIGHT RESP EVEN AND UNLABORED. CONTINUE TO MONITOR Q15MIN
[2025-07-01 09:00] VITALS: BP 115/77
--- NOTE | 2025-07-01 16:52 | NUR ---
SHIFT SUMMARY: PT ALERT, ORIENTED AND COOPERATIVE WITH CARE. SHE DENIES SI AND HI. SHE ENDORSES AH THAT ARE "ALWAYS THERE". SHE WAS PRESENT FOR MEALS AND ATTENDED THE AFTERNOON GROUP. SHE SPENT TIME IN THE DAY ROOM WATCHING TV AND PLAYING CARDS WITH PEERS. SHE SHOWERED THIS AFTERNOON AND ALSO SPENT TIME RESTING ON HER BED.
[2025-07-01 19:39] VITALS: BP 132/84
--- NOTE | 2025-07-01 21:18 | NUR ---
Patient asking for sleep medication with her HS scheduled meds. Wanted both trazodone and melatonin. Explained that they can not be given together. Patient opted for Trazodone with the understanding that the med can be repeated in half an hour if not effective. Will continue close monitoring
--- NOTE | 2025-07-02 04:32 | NUR ---
Patient is alert and oriented times four. She spent most of her time in the milieu drawing. She denies SI and HI, but is still hearing voices which make her anxious at times. At bedtime, she requested and received a Trazodone for sleep which worked effectively until 0400 when she approached the desk asking for another trazodone. I told her it was too late, and asked her why she was up so early, she stated she woke to the voices again. Vistaril was offered and taken, and patient went back to bed. Will continue close monitoring every 15 minutes for safety and comfort.
[2025-07-02 08:55] VITALS: BP 118/81
--- NOTE | 2025-07-02 17:05 | NUR ---
SHIFT SUMMARY: PT ALERT, ORIENTED AND COOPERATIVE WITH CARE. SHE DENIES SI AND HI TODAY. INITIALLY THIS AM STATED THAT SHE WAS WORRIED SHE WOULD GO IN PSYCHOSIS R/T HAVING NIGHT TERRORS. SHE LATER STATED THAT SHE WAS FEELING BETTER. PT WAS PRESENT ON THE UNIT OFF AND ON THROUGHOUT THE DAY. SHE SPENT TIME IN HER ROOM READING AND WRITING IN HER JOURNAL.
[2025-07-02 19:37] VITALS: BP 121/82
--- NOTE | 2025-07-02 21:19 | NUR ---
Melatonin and Trazodone given to patient per her request with her scheduled medications. Patient had a list of her meds and explained that she understood that the vistaril was for daytime, not night. WWill continue observation every 15 minutes for safety and comfort
--- NOTE | 2025-07-03 04:19 | NUR ---
Jocy is alert and oriented times three. She was very outgoing and pleasant with staff and her peers last night. Staying in the TV room journaling all the way till bedtime. She denies all but Auditory hallucinations. She did receive Tylenol for mild generalized discomfort around 0300, and fell right back to sleep. Will continue close monitoring every 15 minutes for comfort and safety
[2025-07-03 08:50] VITALS: BP 117/75
--- NOTE | 2025-07-03 17:29 | NUR ---
SHIFT SUMMARY PT AxOx4. PLEASANT AND COOPERATIVE WITH CARE. PT HAS BEEN FOLLOWING HER TREATMENT PLAN THIS SHIFT INCLUDING TAKING MEDICATION PRESCRIBED, ATTENDING ALL MILIEU GROUPS AND MINGLING APPROPRIATELY WITH STAFF/PEERS. SHE REPORTED "LOW SI/HI" THIS AM, BUT DENIED THIS AFTERNOON. SHE ALSO ENDORSED HEARING VOICES, AND REQUESTED A PRN FOR ANXIETY LATE AFTERNOON. PER MASS SCALE, PT RECIEVED VISTARIL x1 WITH REPORTED RELIEF. PROVIDER ALSO INCREASED BEDTIME ZYPREXA, TO BE STARTED TONIGHT. PT AWARE AND AGREEABLE TO MED CHANGE. PT IS CURRENTLY MINGLING WITH PEERS IN THE HALLWAY. SHE DENIED ANY NEEDS AT THIS TIME. CURRENT DC PLAN IS ANTICIPATED FOR MID-LATE THIS WEEK.
[2025-07-03 21:10] VITALS: BP 123/78
--- NOTE | 2025-07-04 05:19 | NUR ---
Patient is alert to self, place and situation. She started the evening as she has out in the day room journaling. She was talkative with staff and a few of her peers when very quickly, she went out on the patio and began to cry stating she missed what she loved the most which was her mom. Then she told the MHA that she wanted to to be with her. She said that her mother giving blood for a transfusion for her. She also said her friend (the same way). This lasted about 20-25 minutes until she was able to collect herself. HS 20mg Zyprexa given early for comfort. Patient was able to come with this nurse to the dining room for a snack. She was feeling much better after talking with staff. Will continue close monitor every 15 minutes for safety and comfort
--- NOTE | 2025-07-04 13:17 | NUR ---
IMPORTANT DISCHARGE INFORMATION PATIENT TO BE DISCHARGED ON 07/05/25. TRANSPORT COMING FOR HER AROUND 2PM. RIDE LINE . Jordan WILL BE GOING TO THE [facility] IN [place] SHE IS UNABLE TO RETURN TO [facility] IN THE [facility]. SHE HAS BEEN ENROLLED IN [facility]. 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 PHARMACY: [facility] [employer] FAX# [phone]
--- NOTE | 2025-07-04 17:05 | NUR ---
SHIFT SUMMARY PT UP FOR MEALS AND COMPLIANT WITH ALL MEDICATIONS. SHE C/O SI BUT DENIES HI AND C/O OCCASIONAL AH. SHE IS INTERACTING WITH STAFF FREQUENTLY AND IS CALM. SHE DENIES ANY PLAN FOR HER SI, AND EXPRESSES ANXIETY R/T BEING D/C'D. SHE IS ATTENDING ALL GROUPS AND HER BEHAVIORS IN THE MILIEU ARE COMPLIANT. SHE HAD NO ACUTE EVENTS THIS SHIFT.
[2025-07-04 20:47] VITALS: BP 122/77
--- NOTE | 2025-07-04 21:49 | NUR ---
ADVIL AND tYLENOL GIVEN FOR HEAD AND NECK PAIN 10. WILL CONTINUE CLOSE MONITORING FOR PAIN RELIEF AND COMFORT
--- NOTE | 2025-07-05 01:46 | NUR ---
PATIENT VERY TEARFUL DURING SAFETY PLAN MEETING. STATED SHE WAS SCARED ABOUT DISCHARGE TO [facility] IT IS AN AREA WITH READILY AVAILABLE METH- AMPHETAMINE AND THAT WITHIN A COUPLE OF DAYS, SHE WOULD HAVE ENOUGH TO OD AND NOT SURVIVE. WILL CONTINUE CLOSE OBSERVATION EVERY 15 MINUTES FOR COMFORT AND SAFETY
--- NOTE | 2025-07-05 05:11 | NUR ---
Patient alert and oriented times four. She was out in the milieu for the majority of the evening. SHe did approach this RN to get "something for her anxiety "about her discharge tomorrow". 20mg Zyprexa and 10mg Buspar were given which were her bedtime medications. Patient states she does have suicidal ideation but feels she can be safe here in the BHU, Denies HI and AVTH. Please see previous nurses note. Safety plan completed. Will continue close observation every 15 minutes for comfort and patient safety.
[2025-07-05 08:52] VITALS: BP 120/83
--- NOTE | 2025-07-05 09:03 | NUR ---
PATIENT ENDORSED SI WITH A PLAN: "I AM HAVING THOUGHTS OF SICIDE" "i WILL SYRINGE MYSELF" PATIENT DOES DESIRE STAYING TO ADJUST MEDICATIONS FOR INCREASED SAFETY. DR. PHAN WAS NOTIFIED AND HE SAID SHE DOES NEED TO STAY AT THE [facility] A LITTLE LONGER FOR PATIENT SAFETY. MEDICAL TRANSPORT IS BEING CANCELLED FOR TODAY. THE PATIENT IS AWARE THAT SHE IS STAYING AND IS CURRENTLY TALKING WITH VAZQUEZ ANDRES IN THE SENSORY ROOM.
--- NOTE | 2025-07-05 17:19 | NUR ---
SHIFT SUMMARY PT WAS COMPLIANT WITH MEDS AND GROUPS. SHE ENDORSED SI AND WAS NOT ABLE TO D/C TODAY PLANNED D/T HER INABILITY TO CONTRACT FOR SAFETY. SHE TOLD ONE STAFF MEMBER IF SHE D/C'D TODAY SHE WOULD FROM STABBING HERSELF WITH A HYPODERMIC NEEDLE. SHE TOLD ANOTHER STAFF MEMBER THAT SHE WOULD FROM OD ON METH. PT ALSO C/O HEARING VOICES BUT DENIED THEY WERE TELLING HER TO SELF HARM BUT INSTEAD "DO NOT SO GOOD THINGS ABOUT MY COUSIN." SHE WOULD NOT ELABORATE ON THAT. IN THE AFTERNOON SHE C/O ANXIETY AND HAD A MASS SCORE OF 5 SO SHE WAS GIVEN A VISTARIL. THIS WAS THE ONLY PRN THIS SHIFT. D/C PLANNING IS HELD UNTIL FURTHER NOTICE. HER MOOD WAS DEPRESSED AND AFFECT WAS UNINTERESTED. ALL SAFETY CHECKS COMPLETE.
[2025-07-05 20:31] VITALS: BP 115/64
--- NOTE | 2025-07-05 21:12 | NUR ---
DURING HS MEDICATIONS PATIENT BECOMING VERY ANGRY AND YELLING REGARDING TRYING MELATONIN FOR SLEEP BEFORE TRAZODONE. WITH GENTLE CONVERSATION AND ACTIVE LISTENING WITH MHA AND 2ND RN AT SIDE ABLE TO EXPLAIN WHAT WAS SEEN ON THE EMAR. AND PATIENT GIVEN REASSURANCE THAT IF SHE IS STILL AWAKE AFTER 30-40MIN THAT WE CAN GIVE HER THE TRAZODONE. PATIENT NOW CALM AND PLAYING VIDEO GAME WITH PEERS.
--- NOTE | 2025-07-06 04:13 | NUR ---
SHIFT SUMMARY AT BEGINNING OF SHIFT PATIENT IN DAY ROOM PLAYING VIDEO GAMES, VISITING WITH STAFF AND PEERS. CONTINUES WITH SI "IN THE BACK OF MY MIND" DENIES HI. AH VOICES ALTONTER CHATTER IN THE BACKGROUND, VH ARE SHADOWS. WHEN GOING OVER SCHEDULED HS MEDICATIONS, PATIENT HAD A LIST OF MEDICATIONS SHE WAS WANTING FOR SLEEP WRITTEN DOWN IN HER JOURNAL, WANTING BOTH MELATONIN AND TRAZODONE FOR SLEEP AND IBUPROFEN FOR ALVAREZ. WHILE GIVING PATIENT HER HS MEDICATIONS EXPLAINED WILL TRY MELATONIN FIRST AND PATIENT BECAME ANGRY YELLING AND NOT WANTING TO BELIEVE THAT THE LAST FEW NIGHTS SHE SLEPT WELL WITHOUT TRAZODONE, AFTER GENTLE CONVERSATION AND REDIRECTING WITH ASSIST OF MHA AND ANOTHER RN, PATIENT WAS ABLE TO CALM DOWN ENOUGH FOR RN TO EXPLAIN THAT SHE CAN HAVE TRAZODONE IF THE MELATONIN AND SCHEDULED NIGHT MEDS ARE NOT EFFECTIVE. TRAZODONE GIVEN APROX 1HR LATER. AFTER OUTBURST PATIENT RETURNED TO DAY AREA AND REMAINED CALM AND COOPERATIVE. PATIENT APPEARS TO BE SLEEPING WELL T/O NIGHT, RESP EVEN AND UNLABORED. CONTINUE TO MONITOR Q15MIN
[2025-07-06 08:54] VITALS: BP 126/68
--- NOTE | 2025-07-06 17:05 | NUR ---
SHIFT SUMMARY: PT ALERT, ORIENTED AND COOPERATIVE WITH CARE. STATES THAT SHE HAS SUICIDAL THOUGHTS BUT DENIES INTENTION OR PLAN WHILE IN THE BHU. ENDORSES AUDITORY HALLUCINATIONS. STATES, "I'M NOT LISTENING HARD ENOUGH TO HEAR WHAT IS SAID". STATED THAT HER MOOD IS "COMPLICATED". SHE ATTENDED GROUPS AND WAS PRESENT ON THE UNIT. SHE SPENT TIME IN THE DAY ROOM WATCHING TV, JOURNALING AND RESTING IN HER ROOM. PT COMPLIANT WITH MEDICATIONS.
[2025-07-06 19:31] VITALS: BP 127/77
--- NOTE | 2025-07-07 00:06 | NUR ---
SHIFT SUMMARY Pt is A&O, calm, cooperative, eye contact is good. Pt s mood is steady, upbeat, affect is somewhat blunted. Pt endorses passive SI thoughts, but said she is safe on the unit. Pt also endorses AH of murmurs, but is able to ignore it. Pt denies HI and VH, but did say she was seeing shadows in the senior marketing engineer, but not now. Pt spent the evening out on the milieu. She asked if she could trim her hair and television writer escorted pt to the treatment room and allowed her to trim her hair with the disposable electric clippers. Pt received PRN ibuprofen at 2120 for headache pain 8/10w. Pt also received PRN nicotine gum for cravings and trazodone and melatonin for sleep. Staff continues to monitor q15m for safety and wellness.
--- NOTE | 2025-07-07 04:54 | NUR ---
SHIFT SUMMARY (AFTER 0030): THIS RN TOOK OVER CARE OF PATIENT AT 0030. PATIENT CONTINUED TO REST, SOMETIMES MOVING AROUND BUT NOT WAKING UP. SAFETY CHECKS WERE DONE EVERY 15 MINUTES, AND PATIENT WAS RESTING WITH EYES CLOSED AND RESPIRATIONS CONFIRMED.
[2025-07-07 09:06] VITALS: BP 125/78
--- NOTE | 2025-07-07 09:41 | NUR ---
SHIFT ASSESSMEN: PT WOKE UP FOR ASSESSMENT, HE DENIED SI, HI, AVH, ANXIETY AND PHYSICAL PAIN. HE DESCRIBED HIS MOOD , "GOOD," HIS AFFECT WAS FLAT. PT ATE BREAKFAST AND RETURNED TO HIS BED. HE HAS BEEN COOPERATIVE WITH CARE.
--- NOTE | 2025-07-07 09:46 | NUR ---
SHIFT ASSESSMENT: PT AWOKEN FOR ASSESSMENT, SHE DENIED SI, HI AND AVH..."NONE OF THAT THIS MORNING." SHE DESCRIBED HER MOOD , "CHEERFUL." HER AFFECT WAS EUTHYMIC. PT HAS BEEN ENGAGED WITH PEERS AND COOPERATIVE WITH CARE. SHE ATE BREAKFAST AND WENT BACK TO BED.
--- NOTE | 2025-07-07 15:49 | NUR ---
PT WAS VERY ACTIVE AND ATTENTIVE IN GROUPS AND PT MILIEU. SHE HAS BEEN PLEASANT AND COOPERATIVE WITH CARE TODAY. WILL CONTINUE TO MONITOR Q15 MIN PER UNIT PROTOCOL.
[2025-07-07 19:45] VITALS: BP 130/83
--- NOTE | 2025-07-08 06:03 | NUR ---
SHIFT SUMMARY Pt is A&O, calm, cooperative, eye contact is appropriate. Pt s mood is off, affect is constricted. Pt endorses passive SI thoughts, but said she is safe on the unit. Pt also endorses AH of voices, but is able to ignore it. Pt denies HI and VH. Pt endorsed headache pain 4/10w during initial assessment. Pt spent the evening watching TV or drawing in the dayroom. PRN melatonin and trazodone for sleep at 2056. Staff continues to monitor q15m for safety and wellness.
[2025-07-08 09:04] VITALS: BP 128/81
[2025-07-08 11:27] VITALS: BP 127/86
--- NOTE | 2025-07-08 17:52 | NUR ---
SHIFT SUMMARY PT HAS BEEN UP SINCE JUST AFTER THE START OF SHIFT, HAS BEEN ENGAGE IN MILIEU, MEALS, SNACKS ALL DAY. SHE DID ENDORSE SI THOUGHTS AND STATED FLEETING THOUGHTS OF CUTTING. THIS AFTERNOON SHE STATED THOSE FLEETING THOUGHTS ARE GONE. HER HR THIS MORNING AT 1130 WAS 134, SHE CAME TO STAFF AND ASKED TO HAVE IT CHECKED, SAID SHE COULD FEEL HER HEART RACING. PROVIDER WAS NOTIFIED, HIS PLAN IS TO D/C HER DAILY AND PRN ZYPREXA, MAINTAIN HER EVENING. HR CHECK NOW IS 130. NOTIFIED PROVIDER, HE REQESTED MED CONSULT FOR TACHYCARDIA. SHE HAS BEEN MED COMPLIANT, COOPERATIVE, USING RADIO HEADSET OFF/ON, HAS RECEVIED Q15 MIN VISUAL SAFETY CHECKS THROUGHOUT THIS SHIFT
[2025-07-08 19:29] VITALS: BP 120/73
[2025-07-08 22:19] LABS: BASOPHILS ABSOLUTE AUTO 0.03 K/mm3 (0.00-0.23); BASOPHILS PERCENT AUTO 0 % (0-2); EOSINOPHILS ABSOLUTE AUTO 0.55 K/mm3 (0.00-0.68); EOSINOPHILS PERCENT AUTO 6 % (0-6); Hematocrit 37.3 % (33.0-51.0); Hemoglobin 12.2 g/dL (11.5-16.0); IMMATURE GRAN ABSOLUTE AUTO 0.06 K/mm3 (0.00-0.10); IMMATURE GRAN PERCENT AUTO 1 % (0-1); LYMPHOCYTES ABSOLUTE AUTO 3.19 K/mm3 (0.84-5.20); LYMPHOCYTES PERCENT AUTO 32 % (21-46); MONOCYTES ABSOLUTE AUTO 1.00 K/mm3 (0.16-1.47); MONOCYTES PERCENT AUTO 10 % (4-13); Mean Corpuscular HGB Conc 32.7 g/dL (31.5-36.5); Mean Corpuscular Volume 94 fL (80-100); NEUTROPHILS ABSOLUTE AUTO 5.11 K/mm3 (1.96-9.15); NEUTROPHILS PERCENT AUTO 51 % (41-73); NRBC ABSOLUTE 0.00 K/mm3 (0.00-0.02); NRBC Auto 0.0 /100 WBC (0.0-0.2); Platelet Count 325 K/mm3 (150-400); RDW Coefficient Variation 14.3 % (11.7-14.2); RDW Standard Deviation 49.1 fL (35.1-46.3)
[2025-07-08 22:45] LABS: Alanine Aminotransfer (ALT/SGP 61 U/L (12-78); Albumin, Blood 3.6 g/dL (3.4-5.0); Albumin/Globulin Ratio 1.0 (0.8-1.8); Anion Gap 7 mmol/L (3-11); Aspartate Aminotrans (AST/SGOT 29 U/L (12-37); Beta HCG, Quantitative, Serum <1 mIU/mL (0-3); Bilirubin, Total 0.2 mg/dL (0.1-1.0); Blood Urea Nitrogen 22 mg/dL (8-24); CO2, Blood 27 mmol/L (21-32); Calcium, Blood 9.1 mg/dL (8.5-10.1); Chloride, Blood 107 mmol/L (98-108); Creatinine, Blood 0.69 mg/dL (0.40-1.00); Globulin, Blood 3.5 g/dL (2.2-4.0); Glucose, Blood 107 mg/dL (70-99); Potassium, Blood 4.0 mmol/L (3.5-5.5); Sodium, Blood 137 mmol/L (136-145); Thyroid Stimulating Hormone 6.230 uIU/mL (0.360-4.800); Total Protein, Blood 7.1 g/dL (6.4-8.2)
--- NOTE | 2025-07-09 05:13 | NUR ---
SHIFT SUMMARY Pt is A&O to all, calm, cooperative, eye contact is appropriate. Pt s stated mood is irritable, but content, affect is constricted. Pt endorses passive SI thoughts, stating that she thinks about cutting herself. Pt denies HI and hallucinations. Pt endorsed headache pain 4/10w and requested ibuprofen with HS meds. Pt has been tachycardic throughout her admission and has had heart rates as high as 134 today. Consult was placed by day shift and pt was seen by resident, who ordered a lab draw (see orders for specific tests). Pt was active on the unit during the evening, sitting in the dayroom with peers watching TV and journaling. Pt received PRN ibuprofen for headache, trazodone and melatonin for sleep at 2050. Staff continues to monitor q15m for safety and wellness.
[2025-07-09 08:58] VITALS: BP 122/88
--- NOTE | 2025-07-09 17:01 | NUR ---
SHIFT SUMMARY PT A/O X3. SHE PERIODICALLY ENDORSES SI AND AH. PT REPORTED SI AND AH IN RESPONSE TO A VIDEO SHOWN DURING GROUP. PT REPORTED THAT THE VOICES "TOLD ME NOT TO WATCH THE VIDEO AND LEAVE" DURING GROUP AND THAT THE VIDEO MADE HER "WANT TO CUT MYSELF WITH MY FINGERNAILS". WHEN ASKED DURING OTHER TIMES THE PT DENIED SI, AH. DURING DOWN TIME PT IS ENGAGED ON THE UNIT AND INTERACTS WITH PEERS.
[2025-07-09 19:37] VITALS: BP 154/127
[2025-07-09 19:54] VITALS: BP 117/80
--- NOTE | 2025-07-10 05:23 | NUR ---
SHIFT SUMMARY Pt is A&O to all, calm, cooperative, eye contact is appropriate. Pt s stated mood is "upbeat," affect is constricted. Pt endorses passive SI thoughts and is thinking about cutting herself. Pt also endorses VH of shadow figures, to which she responds. Pt denies HI and AH. Pt endorsed headache pain 4/10w and requested ibuprofen with HS meds. Pt s BP was 154/127 on first attempt at VS. Upon retake 30 minutes later BP was 117/80. Pt is to be started on levothyroxine tomorrow morning and physician underwriter provided education on this. Pt was active on the unit during the evening, sitting in the dayroom watching TV and playing games with peers. Pt received PRN PRN ibuprofen for headache and trazodone and melatonin for sleep at 2100. 2050. Staff continues to monitor q15m for safety and wellness.
--- NOTE | 2025-07-10 07:48 | NUR ---
IMPORTANT DISCHARGE INFORMATION PATIENT TO BE DISCHARGED TODAY. SHE WILL BE GOING TO [facility] IN [place] SHE CAN'T RETURN TO [facility] IN [place] OR [place]. [facility] TO PICK HER UP AROUND 11AM. ALL PARTIES VERBALIZE AN UNDERSTANDING. [facility] FOR [facility]: [phone] PHARMACY: [facility] [address] [facility],
[2025-07-10 08:50] VITALS: BP 124/79
[2025-07-10] MEDS ORDERED: HYDPAM50 PO (10:36)
[2025-07-10] MEDS ORDERED: MELA3 PO (10:37)
[2025-07-10] MEDS ORDERED: EUTHYROX50 MCG PO (10:37)
[2025-07-10] MEDS ORDERED: TRAZ50 PO (10:38)
[2025-07-10] MEDS ORDERED: Nicoderm Cq1 EAC1 TOP (10:38)
--- NOTE | 2025-07-10 10:59 | NUR ---
DISCHARGE SUMMARY D/C PACKET PRINTED AND EXPLAINED TO PT, ACKNOWLEDGEMENT FORM SIGNED BY PT. PT STATES UNDERSTANDING. MEDS FAXED TO [facility] IN [facility]. PT HAD ASSISTED ARRANGEMENTS MADE BY D/C NUTRITION HELPER TO GO TO A ASSISTED IN [place], [place]. PT WAS GIVEN BELONGING FROM HER TOTE AND SHE DRESSED HERSELF IN THE BATHROOM PRIOR TO D/C. RIDE ARRANGEMENTS MADE AND PT TO TRANSPORT VIA [employer].
== END 2025-07-10 11:05 | disposition home or self-care (01) | DRG 885 ==
LOC: BHU 16:38
PROVIDERS: Student in an Organized Health Care Education/Training Program; ADMIT Psychiatry & Neurology Psychiatry
DX: F20.0 Paranoid schizophrenia (principal); F15.20 Other stimulant dependence, uncomplicated; Z59.00 Homelessness unspecified; F32.A Depression, unspecified; R45.850 Homicidal ideations; R00.0 Tachycardia, unspecified; R10.13 Epigastric pain; E11.9 Type 2 diabetes mellitus without complications; E03.9 Hypothyroidism, unspecified; F17.210 Nicotine dependence, cigarettes, uncomplicated; F12.90 Cannabis use, unspecified, uncomplicated; F41.9 Anxiety disorder, unspecified; Z91.010 Allergy to peanuts; Z79.899 Other long term (current) drug therapy; Z79.890 Hormone replacement therapy
CPT/HCPCS: 36415; 80053; 80061; 83036; 83690; 83880; 84439; 84443; 84481; 84484; 84702; 85025; 93005; 93010; A9270